=== PATIENT | female | born 1985 | race American Indian/Alaskan Native ===

== ENCOUNTER 2019-10-23 12:22 | Emergency (ER) | payer MEDICAID ==
--- NOTE | 2019-10-23 12:46 | Emergency Department Report ---
Blank Doc - Documentation Documentation: 34-year-old female that presents with SOB, fatigue, weakness, headache, and na usea. Denies any cough. This initial assessment/diagnostic orders/clinical plan/treatment(s) is/are subject to change based on patient's health status, clinical progression and re- assessment by fellow clinical providers in the ED. Further treatment and workup at subsequent clinical providers discretion. Patient/guardians urged not to elope from the ED as their condition may be serious if not clinically assessed and managed. Initial orders include: 1- Patient sent to [facility] for further evaluation and treatment 2- labs
[2019-10-23 13:33] LABS: Basophils % (Auto) 0.9 % (0.0-1.8); Eosinophils # (Auto) 0.1 K/mm3 (0.0-0.4); Eosinophils % (Auto) 1.6 % (0.0-4.3); Hematocrit 43.9 % (30.3-42.9); Hemoglobin 14.9 gm/dl (10.1-14.3); Lymphocytes # (Auto) 1.6 K/mm3 (1.2-5.4); Lymphocytes % (Auto) 38.8 % (13.4-35.0); Mean Corpuscular HGB Conc 34 % (30-34); Mean Corpuscular Volume 85 fl (79-97); Monocytes # (Auto) 0.3 K/mm3 (0.0-0.8); Monocytes % (Auto) 8.1 % (0.0-7.3); Platelet Count 282 K/mm3 (140-440); Red Blood Count 5.19 M/mm3 (3.65-5.03); Red Cell Distribution Width 13.9 % (13.2-15.2)
[2019-10-23 13:50] LABS: BUN/Creatinine Ratio 10; Blood Urea Nitrogen 9 mg/dL (7-17); Calcium 9.2 mg/dL (8.4-10.2); Hemolysis Index 7
[2019-10-23] MEDS ORDERED: ACETAMINOPHEN 500 MG TAB PO ONE (14:55)
[2019-10-23] MEDS ORDERED: POTASSIUM CHLORIDE ER 20 MEQ TAB PO ONE (15:02)
--- NOTE | 2019-10-23 15:08 | Emergency Department Report ---
ED General Adult HPI - General Chief complaint: Headache Stated complaint: DIZZY X3 DAY/ Time Seen by Provider: 10/23/19 12:44 Source: patient, EMS Mode of arrival: Ambulatory Limitations: No Limitations - History of Present Illness Initial comments: Patient is a 34-year-old -[place] female who comes to the ER with various complaints including nausea, headache and shortness of breath. Then she had chest pain and dizziness. Patient has hypertension obesity and asthma. She is ending her menses currently. She is on HCTZ and Norvasc at home. Which she states she is compliant with. Patient denies fever or chills. Patient does have a primary care clinic that she sees but she has not seen him for this illness. Upon further probing I suspect that the patient is concerned for CoVID - Related Data Previous Rx's Medication Instructions Recorded Last Taken Type ALBUTEROL NEB's [Proventil 0.083% 2.5 mg IH TID PRN #1 box 10/23/19 Unknown Rx NEBS] Acetaminophen [Acetaminophen 8 650 mg PO Q8H PRN #25 tablet.er 10/23/19 Unknown Rx Hour] Albuterol Sulfate [Proair 90 mcg IH QID PRN #1 aer.pow.ba 10/23/19 Unknown Rx Respiclick] Allergies Allergy/AdvReac Type Severity Reaction Status Date / Time No Known Allergies Allergy Unverified 10/23/19 12:24 ED Review of Systems ROS: Stated complaint: DIZZY X3 DAY/ Other details as noted in HPI Comment: All other systems reviewed and negative ED Past Medical Hx - Past Medical History Hx Hypertension: Yes Hx Asthma: Yes - Surgical History Hx Cholecystectomy: Yes - Family History Family history: no significant - Social History Smoking Status: Never Smoker Substance Use Type: None - Medications Home Medications: Home Medications Medication Instructions Recorded Confirmed Last Taken Type ALBUTEROL NEB's [Proventil 0.083% 2.5 mg IH TID PRN #1 box 10/23/19 Unknown Rx NEBS] Acetaminophen [Acetaminophen 8 650 mg PO Q8H PRN #25 tablet.er 10/23/19 Unknown Rx Hour] Albuterol Sulfate [Proair 90 mcg IH QID PRN #1 aer.pow.ba 10/23/19 Unknown Rx Respiclick] ED Physical Exam - General Limitations: No Limitations General appearance: alert, in no apparent distress - Head Head exam: Present: atraumatic, normocephalic - Eye Eye exam: Present: normal appearance - ENT ENT exam: Present: mucous membranes moist - Neck Neck exam: Present: normal inspection - Respiratory Respiratory exam: Present: normal lung sounds bilaterally. Absent: respiratory distress - Cardiovascular Cardiovascular Exam: Present: regular rate, normal rhythm. Absent: systolic murmur, diastolic murmur, rubs, gallop - GI/Abdominal GI/Abdominal exam: Present: soft, normal bowel sounds - Extremities Exam Extremities exam: Present: normal inspection - Back Exam Back exam: Present: normal inspection - Neurological Exam Neurological exam: Present: alert, oriented X3 - Psychiatric Psychiatric exam: Present: normal affect, normal mood - Skin Skin exam: Present: warm, dry, intact, normal color. Absent: rash ED Course Vital Signs 10/23/19 10/23/19 10/23/19 12:44 17:25 17:29 Temperature 98.4 F Pulse Rate 73 79 78 Respiratory 20 20 Rate Blood Pressure 187/113 138/95 Blood Pressure 139/95 [Left] O2 Sat by Pulse 95 98 Oximetry ED Medical Decision Making - Lab Data Result diagrams: 10/23/19 13:06 10/23/19 13:06 - Radiology Data Radiology results: report reviewed, image reviewed - Medical Decision Making Labs 10/23/19 10/23/19 10/23/19 13:06 13:06 13:06 WBC 4.2 L RBC 5.19 H Hgb 14.9 H Hct 43.9 H MCV 85 MCH 29 MCHC 34 RDW 13.9 Plt Count 282 Lymph % (Auto) 38.8 H Alpine % (Auto) 8.1 H Eos % (Auto) 1.6 Baso % (Auto) 0.9 Lymph # 1.6 Alpine # 0.3 Eos # 0.1 Baso # 0.0 Seg Neutrophils % 50.6 Seg Neutrophils # 2.1 Sodium 142 Potassium 3.5 L Chloride 103.1 Carbon Dioxide 21 L Anion Gap 21 BUN 9 Creatinine 0.9 Estimated GFR > 60 BUN/Creatinine Ratio 10 Glucose 101 H Calcium 9.2 HCG, Qual Negative Urine Color Urine Turbidity Urine pH Ur Specific Colo Urine Protein Urine Glucose (UA) Urine Ketones Urine Blood Urine Nitrite Urine Bilirubin Urine Urobilinogen Ur Leukocyte Esterase Urine WBC (Auto) Urine RBC (Auto) U Epithel Cells (Auto) 10/23/19 Unknown WBC RBC Hgb Hct MCV MCH MCHC RDW Plt Count Lymph % (Auto) Alpine % (Auto) Eos % (Auto) Baso % (Auto) Lymph # Alpine # Eos # Baso # Seg Neutrophils % Seg Neutrophils # Sodium Potassium Chloride Carbon Dioxide Anion Gap BUN Creatinine Estimated GFR BUN/Creatinine Ratio Glucose Calcium HCG, Qual Urine Color Colorless Urine Turbidity Clear Urine pH 7.0 Ur Specific Colo 1.004 Urine Protein <15 mg/dl Urine Glucose (UA) Neg Urine Ketones Neg Urine Blood Mod Urine Nitrite Neg Urine Bilirubin Neg Urine Urobilinogen < 2.0 Ur Leukocyte Esterase Neg Urine WBC (Auto) 1.0 Urine RBC (Auto) 1.0 U Epithel Cells (Auto) 1.0 Vital Signs 10/23/19 10/23/19 10/23/19 12:44 17:25 17:29 Temperature 98.4 F Pulse Rate 73 79 78 Respiratory 20 20 Rate Blood Pressure 187/113 138/95 Blood Pressure 139/95 [Left] O2 Sat by Pulse 95 98 Oximetry Labs noted. PreG negative. UA negative X-ray negative for acute process Patient ambulatory, nontoxic, taking p.o. and in no acute distress in the ER. Blood pressure was rechecked and is trended down through the course of her stay without medical management. I have updated patient on the results of all of her testing and she is being discharged home with follow-up plans. - Differential Diagnosis RO URI Critical care attestation.: If time is entered above; I have spent that time in minutes in the direct care of this critically ill patient, excluding procedure time. ED Disposition Clinical Impression: Hypertension, History of asthma, Cough Disposition: DC-01 TO HOME OR SELFCARE Is pt being admited?: No Does the pt Need Aspirin: No Condition: Stable Instructions: Hypertension (ED) Additional Instructions: XRAY NORMAL CONTINUE HOME MEDS FOLLOW UP WITH PCP REFERRAL BELOW LABS/UA NORMAL TODAY- NO EVIDENCE INFECTION Prescriptions: Acetaminophen [Acetaminophen 8 Hour] 650 mg PO Q8H PRN #25 tablet.er PRN Reason: Pain , Severe (7-10) Albuterol Sulfate [Proair Respiclick] 90 mcg IH QID PRN #1 aer.pow.ba PRN Reason: Wheezing ALBUTEROL NEB's [Proventil 0.083% NEBS] 2.5 mg IH TID PRN #1 box PRN Reason: Wheezing Referrals: ORLANDO ROSAS MD [Staff Physician] - 3-5 Days Time of Disposition: 17:18
--- NOTE | 2019-10-23 15:17 | XRay Report ---
CHEST 2 VIEWS INDICATION / CLINICAL INFORMATION: sob. COMPARISON: None available. FINDINGS: SUPPORT DEVICES: None. HEART / MEDIASTINUM: No significant abnormality. LUNGS / PLEURA: No significant pulmonary or pleural abnormality. No pneumothorax. ADDITIONAL FINDINGS: No significant additional findings. IMPRESSION: 1. No acute findings. Signer Name: Calvin Lainez MD Signed: 10/23/2019 3:13 PM Workstation Name: [id number]
[2019-10-23] MEDS ORDERED: cloNIDine 0.1 MG TAB PO ONE (17:04)
[2019-10-23 17:12] LABS: Bilirubin,Urine NEG (Negative); Blood,Urine MOD (Negative); Color,Urine Colorless (Yellow); Protein,Urine <15 mg/dL mg/dL (Negative); Urobilinogen,Urine < 2.0 mg/dL (<2.0)
[2019-10-23 17:30] VITALS: BP 138/95
== END 2019-10-23 18:22 | disposition home or self-care (01) ==
LOC: ED 12:22
DX: I10 Essential (primary) hypertension (principal); J45.909 Unspecified asthma, uncomplicated; Z79.899 Other long term (current) drug therapy
CPT/HCPCS: 36415; 71046; 80048; 81001; 84703; 85025

== ENCOUNTER 2020-07-08 11:15 | Emergency (ER) | payer MEDICAID ==
--- NOTE | 2020-07-08 13:01 | Event Note ---
ED Screening Note ED Screening Note: states she began having right flank pain two weeks ago states it radiates to the right lower abdomen no fever no v/d +nausea no urinary symptoms no fall or injury no numbness, weakness, bowel or bladder incontinence PMHx HTN, asthma no allergies to meds LNMP: 07/02/2020 never had before states she went to her PCP and had her urine tested for UTI and states it was negative, states she has been taking ibuprofen and macrobid This initial assessment/diagnostic orders/clinical plan/treatment(s) is/are subject to change based on patients health status, clinical progression and re- assessment by fellow clinical providers in the ED. Further treatment and workup at subsequent clinical providers discretion. Patient/guardian urged not to elope from the ED as their condition may be serious if not clinically assessed and managed. Initial orders include: labs, ua, CT
[2020-07-08 14:04] LABS: Basophils # (Auto) 0.1 K/mm3 (0.0-0.1); Basophils % (Auto) 1.2 % (0.0-1.8); Eosinophils # (Auto) 0.1 K/mm3 (0.0-0.4); Eosinophils % (Auto) 2.1 % (0.0-4.3); Hematocrit 42.6 % (30.3-42.9); Hemoglobin 14.2 gm/dl (10.1-14.3); Lymphocytes # (Auto) 1.9 K/mm3 (1.2-5.4); Lymphocytes % (Auto) 41.2 % (13.4-35.0); Mean Corpuscular HGB Conc 34 % (30-34); Mean Corpuscular Volume 87 fl (79-97); Monocytes # (Auto) 0.3 K/mm3 (0.0-0.8); Monocytes % (Auto) 7.5 % (0.0-7.3); Platelet Count 303 K/mm3 (140-440); Red Cell Distribution Width 13.9 % (13.2-15.2)
[2020-07-08 14:12] LABS: Alanine Aminotransferase 17 units/L (7-56); Albumin 4.2 g/dL (3.9-5); BUN/Creatinine Ratio 14; Blood Urea Nitrogen 11 mg/dL (7-17); Calcium 9.2 mg/dL (8.4-10.2); Hemolysis Index 8
[2020-07-08 15:23] LABS: Bilirubin,Urine NEG (Negative); Blood,Urine NEG (Negative); Color,Urine Straw (Yellow); Protein,Urine <15 mg/dL mg/dL (Negative); Urobilinogen,Urine < 2.0 mg/dL (<2.0)
--- NOTE | 2020-07-08 16:36 | Cat Scan Report ---
CT ABDOMEN AND PELVIS WITHOUT CONTRAST INDICATION: right flank pain radiates to RLQ. TECHNIQUE: Axial CT images were obtained through the abdomen and pelvis without IV contrast. All CT scans at [facility] location are performed using CT dose reduction for ALARA by means of automated exposure control. COMPARISON: None available. FINDINGS: LOWER CHEST: No significant abnormality. LIVER: No significant abnormality. GALLBLADDER: Surgically absent BILE DUCTS: No significant abnormality. PANCREAS: No significant abnormality. SPLEEN: No significant abnormality. ADRENALS: No significant abnormality. RIGHT KIDNEY and URETER: No significant abnormality. LEFT KIDNEY and URETER: No significant abnormality. STOMACH and SMALL BOWEL: No significant abnormality. COLON: No significant abnormality. APPENDIX: No significant abnormality. PERITONEUM: No free fluid. No free air. No fluid collection. LYMPH NODES: No significant adenopathy. AORTA and ARTERIES: No significant abnormality. IVC and VEINS: No significant abnormality. URINARY BLADDER: No significant abnormality. REPRODUCTIVE ORGANS: No significant abnormality. ADDITIONAL FINDINGS: None. SKELETAL SYSTEM: No significant abnormality. IMPRESSION: 1. No significant abnormality. Signer Name: Calvin Lainez MD Signed: 07/08/2020 4:31 PM Workstation Name: [id number]
[2020-07-08] MEDS ORDERED: ACETAMINOPHEN 325 MG TAB PO ONE (19:19)
--- NOTE | 2020-07-08 19:24 | Emergency Department Report ---
ED General Adult HPI - General Chief complaint: Abdominal Pain Stated complaint: RT SIDE PAIN Time Seen by Provider: 07/08/20 12:59 Source: patient Mode of arrival: Wheelchair Limitations: No Limitations - History of Present Illness Initial comments: 35-year-old -[place] female patient with history of asthma and hypertension presents with complaints of intermittent right flank pain radiating to her right lower abdomen x2 weeks. Patient states she did follow-up with her primary care doctor and was placed on Macrobid although no signs of urinary tract infection were noted on her UA. Patient states her symptoms improved and have began to worsen. She denies any association with her pain with eating, fever/chills/sweats, vomiting/diarrhea, urinary symptoms cough, chest pain, or shortness of breath. She states the pain is currently mild and rates it as a 4/10 in severity. Tylenol typically works well for pain per patient. She has history of a cholecystectomy. No constipation per patient. Patient also complains of right upper dental pain 3 days. She reports that she is to have her tooth pulled in July. She denies any facial swelling - Related Data Previous Rx's Medication Instructions Recorded Last Taken Type ALBUTEROL NEB's [Proventil 0.083% 2.5 mg IH TID PRN #1 box 10/23/19 Unknown Rx NEBS] Acetaminophen [Acetaminophen 8 650 mg PO Q8H PRN #25 tablet.er 10/23/19 Unknown Rx Hour] Albuterol Sulfate [Proair 90 mcg IH QID PRN #1 aer.pow.ba 10/23/19 Unknown Rx Respiclick] Docusate Sodium [Colace] 100 mg PO BID PRN #20 capsule 11/29/19 Unknown Rx Famotidine [Pepcid] 40 mg PO QHS #14 tablet 11/29/19 Unknown Rx Polyethylene Glycol 3350 [Miralax] 7 gm PO DAILY PRN #1 powder 11/29/19 Unknown Rx Simethicone [Gas-X] 62.5 mg PO DAILY #1 strip 11/29/19 Unknown Rx Penicillin V Potassium 500 mg PO QID 7 Days #28 tablet 07/08/20 Unknown Rx Allergies Allergy/AdvReac Type Severity Reaction Status Date / Time No Known Allergies Allergy Verified 07/08/20 11:42 ED Review of Systems ROS: Stated complaint: RT SIDE PAIN Other details as noted in HPI Constitutional: denies: chills, diaphoresis, fever, malaise, weakness ENT: dental pain. denies: throat pain Respiratory: denies: cough, shortness of breath Cardiovascular: denies: chest pain Endocrine: denies: excessive sweating Gastrointestinal: abdominal pain. denies: nausea, vomiting, diarrhea, constipation, hematemesis, melena Genitourinary: denies: urgency, dysuria Musculoskeletal: as per HPI. denies: arthralgia Skin: denies: rash, change in color Neurological: denies: headache ED Past Medical Hx - Past Medical History Hx Hypertension: Yes Hx Asthma: Yes - Surgical History Hx Cholecystectomy: Yes - Social History Smoking Status: Never Smoker Substance Use Type: None - Medications Home Medications: Home Medications Medication Instructions Recorded Confirmed Last Taken Type ALBUTEROL NEB's [Proventil 0.083% 2.5 mg IH TID PRN #1 box 10/23/19 Unknown Rx NEBS] Acetaminophen [Acetaminophen 8 650 mg PO Q8H PRN #25 tablet.er 10/23/19 Unknown Rx Hour] Albuterol Sulfate [Proair 90 mcg IH QID PRN #1 aer.pow.ba 10/23/19 Unknown Rx Respiclick] Docusate Sodium [Colace] 100 mg PO BID PRN #20 capsule 11/29/19 Unknown Rx Famotidine [Pepcid] 40 mg PO QHS #14 tablet 11/29/19 Unknown Rx Polyethylene Glycol 3350 [Miralax] 7 gm PO DAILY PRN #1 powder 11/29/19 Unknown Rx Simethicone [Gas-X] 62.5 mg PO DAILY #1 strip 11/29/19 Unknown Rx Penicillin V Potassium 500 mg PO QID 7 Days #28 tablet 07/08/20 Unknown Rx ED Physical Exam - General Limitations: No Limitations General appearance: alert, in no apparent distress, obese - Head Head exam: Present: atraumatic, normocephalic - Eye Eye exam: Present: normal appearance. Absent: scleral icterus - Expanded ENT Exam Expanded 1 - Dental Tenderness (Mild surrounding erythema without obvious abscess or overlying facial swelling/cellulitis), Other - Neck Neck exam: Present: normal inspection, full ROM. Absent: lymphadenopathy - Respiratory Respiratory exam: Present: normal lung sounds bilaterally. Absent: respiratory distress - Cardiovascular Cardiovascular Exam: Present: regular rate, normal rhythm - GI/Abdominal GI/Abdominal exam: Present: soft, normal bowel sounds. Absent: distended, tenderness, guarding, rebound, rigid - Extremities Exam Extremities exam: Present: full ROM - Back Exam Back exam: Present: CVA tenderness (R) (Mild). Absent: CVA tenderness (L) - Neurological Exam Neurological exam: Present: alert, oriented X3, normal gait - Psychiatric Psychiatric exam: Present: normal affect, normal mood - Skin Skin exam: Present: warm, dry, intact, normal color. Absent: rash ED Course Vital Signs 07/08/20 11:44 Temperature 97.9 F Pulse Rate 83 Respiratory 18 Rate Blood Pressure 144/95 O2 Sat by Pulse 94 Oximetry ED Medical Decision Making - Lab Data Result diagrams: 07/08/20 13:08 07/08/20 13:08 - Radiology Data Radiology results: report reviewed CT ABDOMEN AND PELVIS WITHOUT CONTRAST INDICATION: right flank pain radiates to RLQ. TECHNIQUE: Axial CT images were obtained through the abdomen and pelvis without IV contrast. All CT scans at this location are performed using CT dose reduction for ALARA by means of automated exposure control. COMPARISON: None available. FINDINGS: LOWER CHEST: No significant abnormality. LIVER: No significant abnormality. GALLBLADDER: Surgically absent BILE DUCTS: No significant abnormality. PANCREAS: No significant abnormality. SPLEEN: No significant abnormality. ADRENALS: No significant abnormality. RIGHT KIDNEY and URETER: No significant abnormality. LEFT KIDNEY and URETER: No significant abnormality. STOMACH and SMALL BOWEL: No significant abnormality. COLON: No significant abnormality. APPENDIX: No significant abnormality. PERITONEUM: No free fluid. No free air. No fluid collection. LYMPH NODES: No significant adenopathy. AORTA and ARTERIES: No significant abnormality. IVC and VEINS: No significant abnormality. URINARY BLADDER: No significant abnormality. REPRODUCTIVE ORGANS: No significant abnormality. ADDITIONAL FINDINGS: None. SKELETAL SYSTEM: No significant abnormality. IMPRESSION: 1. No significant abnormality. - Medical Decision Making 35-year-old -[place] female patient with history of asthma and hypertension presents with complaints of intermittent right flank pain radiating to her right lower abdomen x2 weeks. Patient states she did follow-up with her primary care doctor and was placed on Macrobid although no signs of urinary tract infection were noted on her UA. Patient states her symptoms improved and have began to worsen. She denies any association with her pain with eating, fever/chills/sweats, vomiting/diarrhea, or urinary symptoms. She states the pain is currently mild and rates it as a 4/10 in severity. Tylenol typically works well for pain per patient. She has history of a cholecystectomy. No constipation per patient. Patient also complains of right upper dental pain 3 days. She reports that she is to have her tooth pulled in July. She denies any facial swelling No significant tenderness noted on exam of the abdomen. CBC and CMP are within normal limits. UA is normal. CT without contrast of the abdomen is negative for any acute abnormalities. Patient's vitals are normal, she is well- appearing. Recommend follow-up with GI for further evaluation and PCP. Penicillin given for dental infection. Return precautions were discussed in detail with patient who verbalizes understanding. Critical care attestation.: If time is entered above; I have spent that time in minutes in the direct care of this critically ill patient, excluding procedure time. ED Disposition Clinical Impression: Infected dental caries Abdominal pain Qualifiers: Abdominal location: right lower quadrant Qualified Code(s): R10.31 - Right lower quadrant pain Disposition: TO HOME OR SELFCARE Is pt being admited?: No Condition: Stable Instructions: Abdominal Pain (ED), Abdominal Pain, Adult, Dental Abscess Prescriptions: Penicillin V Potassium 500 mg PO QID 7 Days #28 tablet Referrals: [facility] [Provider Group] - 2-3 Days
[2020-07-08 20:56] VITALS: BP 132/66
== END 2020-07-08 21:12 | disposition home or self-care (01) ==
LOC: ED 11:15
DX: K04.7 Periapical abscess without sinus (principal); K02.9 Dental caries, unspecified; R10.31 Right lower quadrant pain; I10 Essential (primary) hypertension; J45.909 Unspecified asthma, uncomplicated; Z90.49 Acquired absence of other specified parts of digestive tract; Z79.899 Other long term (current) drug therapy
CPT/HCPCS: 36415; 74176; 80053; 81001; 84703; 85025